=== PATIENT | female | born 1955 | race Caucasian/White ===

== ENCOUNTER 2021-09-15 09:46 | Outpatient (CLI) | payer MEDICARE, SELFPAY ==
--- NOTE | ~2021-09-15 | CT_ITS ---
EXAMINATION: CT LE LT wo con DATE: 09/15/2021 10:09 INDICATION: Unilateral primary osteoarthritis, left knee. TECHNIQUE: Computed tomography (CT) of the left lower limb was performed without intravenous contrast . Automated exposure control and iterative reconstruction technique were employed. The dose-length pr oduct was 1700.53 mGy-cm. COMPARISON: Left knee radiographs 07/21/2021 FINDINGS: Bone alignment is normal. No fracture. There is mild left hip osteoarthritis. The knee demo nstrates severe osteoarthritis of the medial compartment and moderate osteoarthritis of the lateral a nd patellofemoral compartments. There is a moderate-sized knee joint effusion with loose bodies. Ther e is a large Doan's cyst with loose bodies. IMPRESSION: 1. Severe left knee osteoarthritis. 2. Moderate-sized left knee joint effusion with loose bodies. 3. Large left-sided Doan's cyst with loose bodies. 4. Mild left hip osteoarthritis. Reviewed, dictated and finalized at location A. AND SHOE INSPECTOR
== END 2021-09-15 09:47 | disposition home or self-care (01) ==
PROVIDERS: PCP Internal Medicine Infectious Disease; Visit Provider Orthopaedic Surgery
DX: M17.12 Unilateral primary osteoarthritis, left knee (principal)
CPT/HCPCS: 73700

== ENCOUNTER 2021-09-27 11:55 | Outpatient (CLI) | payer MEDICARE, SELFPAY ==
--- NOTE | 2021-09-27 | ECG_ITS ---
Measurements Intervals [place] Rate: 62 P: 15 [place]: 165 QRS: 8 QRSD: 87 T: 0 QT: 397 QTc: 405 Interpretive Statements SINUS RHYTHM CONSIDER INFERIOR INFARCT, AGE INDETERMINATE ABNORMAL ECG Electronically Signed On 09-27-2021 14:44:11 OUTPATIENT PHARMACY MANAGER by Terence Sanders D.O.
[2021-09-27 12:36] LABS: Urine Cotinine NEGATIVE
[2021-09-27 12:39] LABS: Albumin Level 4.3 g/dL (3.5-5.1); Estimated Glomerular Filt Rate > 60; Glucose 90 mg/dL (65-110)
[2021-09-27 12:40] LABS: Hemoglobin A1C 5.3 % (<5.7)
[2021-09-27 12:48] LABS: Hematocrit 41.8 % (37.0-47.0); Hemoglobin 13.7 g/dL (12.0-15.0)
== END 2021-09-27 11:56 | disposition home or self-care (01) ==
PROVIDERS: PCP Internal Medicine Infectious Disease; Visit Provider Orthopaedic Surgery
DX: M17.12 Unilateral primary osteoarthritis, left knee (principal); Z01.818 Encounter for other preprocedural examination
CPT/HCPCS: 80307; 82040; 82565; 82947; 83036; 85014; 85018; 93005

== ENCOUNTER 2022-01-19 11:44 | Outpatient (CLI) | payer MEDICARE, SELFPAY ==
[2022-01-19 13:31] LABS: Basophils Absolute Auto 0.1 K/mm3 (0.0-0.1); Basophils Percent Auto 0.8 % (0.2-1.2); Eosinophils Absolute Auto 0.1 K/mm3 (0-0.3); Eosinophils Percent Auto 0.9 % (0-4.4); Hematocrit 40.4 % (37.0-47.0); Hemoglobin 13.6 g/dL (12.0-15.0); Immature Granulocyte Absolute 0.03 K/mm3 (0.00-0.031); Immature Granulocyte Percent A 0.4 % (0-0.5); Lymphocytes Absolute Auto 0.92 K/mm3 (0.9-3.2); Lymphocytes Percent Auto 11.9 % (18.3-44.2); Mean Corpuscular HGB Conc 33.7 g/dl (32-36); Mean Corpuscular Hemoglobin 30.8 pg (26-34); Mean Corpuscular Volume 91.6 fl (80-100); Mean Platelet Volume 11.5 fl (7.4-10.4); Monocytes Absolute Auto 0.2 K/mm3 (0.1-0.6); Neutrophils Absolute Auto 6.4 K/mm3 (1.3-6.7); Platelet Count Result 244 k/mm3 (150-375); Red Blood Count 4.41 M/mm3 (4.2-5.4); Red Cell Distribution Width 12.5 % (11.5-14.5); White Blood Count 7.7 K/mm3 (4.5-10.0)
[2022-01-19 13:43] LABS: Albumin Level 4.4 g/dL (3.5-5.1); Estimated Glomerular Filt Rate > 60; Glucose 119 mg/dL (65-110)
[2022-01-19 13:54] LABS: Urine Cotinine NEGATIVE
[2022-01-19 14:01] LABS: Hemoglobin A1C 5.5 % (<5.7)
== END 2022-01-19 11:45 | disposition home or self-care (01) ==
LOC: ANHSURGERY 11:51
PROVIDERS: PCP Internal Medicine Infectious Disease; Visit Provider Orthopaedic Surgery
DX: Z01.818 Encounter for other preprocedural examination (principal); M17.12 Unilateral primary osteoarthritis, left knee
CPT/HCPCS: 80307; 82040; 82565; 82947; 83036; 85025; 87081

== ENCOUNTER 2022-02-08 00:02 | Day surgery (SDC) | payer MEDICARE, SELFPAY ==
[2022-01-19 12:27] VITALS: BP 169/77; PULSE 71; RESP 16; TEMP 36.7; O2SAT 100; BMI 31.1
--- NOTE | 2022-01-19 12:42 | PC.NURSE ---
Report to the Outpatient Waiting Room, entrance under the green pavilion located off [facility], at time __8:30AM on date __02/08/22 . OR Time: ___10:30AM . - You and your visitor will be asked a series of questions to screen for COVID 19 for your protection. - A mask is required within the hospital. Preoperative COVID Testing Requirements: No COVID Test needed if: (proof is required; if not received patient will have Rapid Test prior to entry) - Patient has received COVID Vaccine at least 14 days prior to procedure date or - Patient has positive COVID test result within last 90 days of surgery date. COVID Test needed if above criteria is not met If not COVID vaccinated a COVID test must be conducted within 72 hours of surgery and patient is asked to isolate self from time of testing until procedure. You will go to the [facility] for your COVID testing. [facility] is located at the corner of [address] [facility]. You will only be called if COVID results are positive and your surgeon may reschedule your elective surgery date. Patients may have clear liquids (water, carbonated beverages, clear teas, apple juice) until 3 hours prior to surgery with a maximum of 20 ounces. - No food from midnight until time of surgery - Infants may have breast milk until 4 hours before surgery, formula 6 hours prior to surgery. - Children will be allowed to drink immediately following surgery. If applicable, please bring a bottle or sippy cup to assist with drinking. Juice, water, soda, and popsicles are readily available. For infants on formula, please bring formula the day of surgery. Pacifiers are allowed. Take the following medications with a SIP of water the morning of surgery: __METOPROLOL Medications to discontinue per physician DICLOFENAC AND ALL VITAMINS/SUPPLEMENTS 7 DAYS PRE-OP Date to take last dose 02/01/22 Please no make-up, nail spanish, hairspray, perfume, deodorant, or body powder the day of surgery. No jewelry (including any body piercings) or valuables the day of surgery, leave them at home. Please take a shower or bath the night before, or the morning of, surgery with an antibacterial soap. Wear comfortable, loose fitting clothing. Children are encouraged to wear pajamas. - Jewelry must be removed prior to entering the operating room. Rings and piercings that are not removed may be cut off. - The hospital will not accept responsibility for valuables. - Please leave all valuables, including medications, at home the day of surgery. If you are going home after surgery, a licensed trackless trolley driver must drive you home. - NO public transportation without another adult. - We recommend that an adult stay with you for 24 hours following discharge. - We also recommend that you do not drive, make important decision, drink alcoholic beverages, or take any drugs that were not prescribed by your health care provider for at least 24 hours after your discharge time. For Pediatric surgeries, we recommend two adults accompany the child home (only one inside the building at this time). One visitor will be allowed to accompany the patient into the hospital. Patients visitor will be instructed to remain with patient at all times or leave the building. We will allow the visitor to come back to the postoperative area when patient is ready. Follow any additional instructions given to you from your surgeon. Telephone instructions given to ___PATIENT and asked if any additional questions and then verbalized understanding. Patient advised to call surgeon office or pre surgery nurse liaison [phone] if any additional questions.
--- NOTE | 2022-02-07 10:49 | WPDANESEPPF ---
Anes - Initial Pre Proc Eval Procedure: Operation Date: 02/08/22 10:30 Proposed Procedures p Left Custom Total Knee Arthroplasty - Rome Josue MD Date/Time: 02/07/22 10:49 Surgeon: Rome Josue MD Pre Op Diagnosis: primary OA left knee Patient Data Age: 66 Gender: F Height: 1.6 m Weight: 79.6 kg Last Vital Signs Temp 36.7 C 01/19/22 12:27 Pulse 71 01/19/22 12:27 Resp 16 01/19/22 12:27 BP 169/77 H 01/19/22 12:27 Pulse Ox 100 01/19/22 12:27 Allergies Allergy/AdvReac Type Severity Reaction Status Date / Time Sulfa (Sulfonamide Allergy Unknown Rash Verified 02/08/22 08:35 Antibiotics) Home Medications Medication Instructions Recorded Confirmed Type lisinopril 20 mg tablet 20 mg PO QAM 04/22/20 02/08/22 History vitamin B12 500 mcg-folic acid 400 1 tablet PO DAILY 04/22/20 02/08/22 History mcg tablet cholecalciferol (vitamin D3) 50 mcg PO DAILY 01/19/22 02/08/22 History diclofenac sodium 1 ea TOPICAL DAILY 01/19/22 02/08/22 History diclofenac sodium 75 mg PO QAM 01/19/22 02/08/22 History metoprolol succinate 100 mg PO QAM 01/19/22 02/08/22 History omeprazole 20 mg PO QAM 01/19/22 02/08/22 History ECG: Date of Service: 09/27/21 Procedure(s): CA 12 lead EKG Accession Number(s): [id number] cc: ~ Measurements Intervals [place] Rate: 62 P: 15 RI: 165 QRS: 8 QRSD: 87 T: 0 QT: 397 QTc: 405 Interpretive Statements SINUS RHYTHM CONSIDER INFERIOR INFARCT, AGE INDETERMINATE ABNORMAL ECG Electronically Signed On 09-27-2021 14:44:11 SERVICER COIN MACHINES by Terence Sanders D.O. Patient hx anesthesia problems: none Family hx anesthesia problems: none Results Review: All pre-operative results and documents have been reviewed as part of the pre-operative evaluation. [facility] Past Medical History Medical History (Updated 02/07/22 @ 10:51 by Jose Monique MD) Bilateral primary osteoarthritis of knee Chronic GERD HTN (hypertension) Obesity Surgical History Surgical History H/O excision of ganglion cyst (~01/25/19) Lt History of meniscectomy of left knee (~02/16/16) History of shoulder surgery (~2009) Rotator Cuff Repair - Rt Family History Family History Unknown No problems noted. Social History Social History Smoking status: Never smoker Alcohol intake: current Drinks per week: 7 Substance use: never Living arrangements: with family Additional living arrangements comments: [facility] Spiritual care concerns: No Anes - Eval Final PreProcedure Day of Procedure 02/07/22 10:49 Patient weight: obese Heart: regular rate and rhythm Lungs: clear to auscultation and normal air movement Airway: Mallampati scale class II Neurological: alert and oriented Last oral intake: >/= 8 hours ASA classification: III Emergent: no Anesthetic plan: proceed Anesthesia type and monitoring: general LMA Results Review: All pre-operative results and documents have been reviewed as part of the pre-operative evaluation. Informed Consent: The patient's anesthetic plan and its attendant risks and benefits were discussed with the patient/family/POA. Questions were solicited and answers provided to the satisfaction of the patient/family/POA.
--- NOTE | 2022-02-07 10:51 | WPDANESPNB ---
Anes - Peripheral Nerve Block Date/Time: 02/07/22 10:51 I have discussed with the patient/family/POA the placement of a peripheral nerve block for post-operative pain management, including associated risks, benefits, complications, and side effects. Alternative methods of post-operative analgesia were detailed. Questions were solicited and answers provided to the satisfaction of the patient/family/POA. Time-Out: A pre-procedural Time-Out was completed immediately before starting the procedure and confirmed: Patient Identification, Site, Procedure, Patient Position and the Availability of Requisite Equipment. Clinical Indications: Acute post-operative pain management requested by the operative surgeon. Nerve Block Insertion Note Anes-nerve block: adductor canal left Patient position: supine Skin prep: chlorhexidine Needle: 22 gauge, stimulating, insulated echogenic needle. Needle length: 80 mm Technique: ultrasound Technique comment: in plane Injectate: bupivacaine 0.25% with epi 5 mcg/ml (30cc) Observations: tolerated well Complications: none Procedure start time:: 1015 Procedure end time:: 1020
[2022-02-08] VITALS (14 sets, daily range): BP systolic 134–163; BP diastolic 64–97; PULSE 69–90; RESP 9–20; TEMP 35.6–37.2; O2SAT 91–100
--- NOTE | ~2022-02-08 | XR_ITS ---
EXAMINATION: XR knee LT 2V EXAM DATE: 02/08/2022 13:52 INDICATION: Total left knee arthroplasty. TECHNIQUE: Portable frontal, crosstable lateral projections left knee obtained immediately following arthroplasty performed by orthopedic surgeon Rome Josue MD. FINDINGS: Patient is status post total knee arthroplasty. The orthopedic hardware is in expected po sition. There is there is subcutaneous gas, gas within the knee joint space. Overlying soft tissue swelling. Correlate with procedure note. IMPRESSION: Status post total left knee arthroplasty. Reviewed, dictated and finalized at location A.
--- NOTE | 2022-02-08 07:09 | WPDHPUPDATE1 ---
History and Physical Update Update Date/Time: 02/08/22 07:09 History and Physical has been reviewed, including an updated exam of the patient. There are NO changes in the patient's condition. Risks, benefits, and alternatives have been discussed and questions answered. Patient agrees to proceed with procedure.
[2022-02-08] MEDS: LACTATED RINGERS 1,000 ML 30 ML IV CONT ×2 (08:55→13:40)
[2022-02-08] MEDS: TRANEXAMIC ACID 1,000MG/ISO100 1,000 MG/100 ML BAG 200 MG IVPB (09:00)
[2022-02-08] MEDS: ACETAMINOPHEN 500 MG TABLET 1000 MG PO (09:01)
[2022-02-08] MEDS: ceFAZolin 2 GM/D5W 50 ML 2 GM/50 ML BAG IVPB ×2 (10:49→17:58)
[2022-02-08] MEDS: fentaNYL CITRATE INJ (*CRX) 100 MCG/2 ML VIAL 25 MCG IV PUSH ×2 (13:49→14:05)
[2022-02-08] MEDS: ONDANSETRON INJ 4 MG/2 ML VIAL IV PUSH (14:23)
--- NOTE | 2022-02-08 15:28 | ADMGEN ---
This patient, Pauline Diallo, was admitted to 2 Medical Room 240-01. Patient/family oriented to hospital policies and general routines including ID bracelet, bed and alarms, visiting hours, pain management, procedures, bathroom and other care routines, personal items, smoking policy, room service/diet, and visiting hours. Information on how to activate the Rapid Response Team has been discussed. Patient/Family are encouraged to report perceived risks to care and to ask questions if they do not understand what they are told or what they should do.
--- NOTE | 2022-02-08 16:13 | W.PM.PROC2 ---
Procedure Note - Detailed Date of Procedure 02/08/22 Pre-op Diagnosis primary OA left knee Post-op Diagnosis Same Procedure Performed Total knee arthroplasty, left. Surgeon Rome Josue MD Senior Professional Services Consultant Wendy Cotton PA-C Anesthesia General and Regional (Subsartorial block.) Description of Procedure Physician transportation assistant, Wendy Cotton PA-C, required for surgery; including patient positioning, draping, tissue retraction, maintaining instrument position, cement removal, wound closure, and dressing placement. Preoperative antibiotics were given. The limb was prepped and draped in the usual sterile fashion with a well-padded tourniquet high on the thigh. The limb was exsanguinated and the tourniquet inflated to 300 mmHg. A longitudinal incision was created just medial to the patella. A trivector approach to the knee was performed. Arthrotomy was taken down through the joint capsule. No significant releases were initially taken. The femur was exposed and the F1 jig was applied. The coring tool was used to remove the cartilage for the F2 jig to sit flush with the bone. The jig was pinned and the distal cut carefully taken. Caliper measurements confirmed appropriate bony resections according to the preoperative templated plan. The F4 cutting jig for the femur was applied, at the standard rotation. The AP and anterior chamfer cuts were taken. The F5 jig was applied and the posterior chamfer cuts were taken. The tibia was prepared using the T1 jig, after removing cartilage for the jig contact points. Proper alignment was checked with the alignment josef. The tibia was cut using the T1u guide. Gap balancing was performed. Gap measurements were taken and the knee was trialed. Excellent alignment and soft tissue balancing was confirmed. The posterior cruciate ligament was recessed along the proximal tibia. The patella was cut for resurfacing. Three lug holes were drilled. Meniscal remnants were removed. The trial components were assembled. Excellent range of motion and proper soft tissue balancing were confirmed throughout the full range of motion. Patellar tracking was excellent. The knee was copiously irrigated periodically throughout the procedure. The real implants were cemented into position. Excess cement was carefully removed. The wound was closed in layers with interrupted #1 Vicryl suture, 2-0 strata fix suture, 0 strata fix suture, 2-0 strata fix suture. Steri-Strips placed on the skin with the knee flexed. Sterile bulky dressing applied. The patient was brought to the recovery room in stable condition. There were no complications. Implants Conformis Custom total knee arthroplasty. Cemented. [Cruciate retaining.] [6A] insert. [32] mm round patella. Estimated Blood Loss -100.0 Drains No Complications No immediate complications Condition Stable Disposition PACU
[2022-02-08] MEDS: ASPIRIN 81 MG ENTERIC TABLET PO (17:32)
[2022-02-09] MEDS: ceFAZolin 2 GM/D5W 50 ML 2 GM/50 ML BAG IVPB ×2 (01:39→09:23)
[2022-02-09 04:58] VITALS: BP 143/75; PULSE 79; RESP 18; TEMP 36.9; O2SAT 99
[2022-02-09] MEDS: PANTOPRAZOLE 40 MG TABLET PO (07:14)
[2022-02-09] MEDS: SENNA/DOCUSATE SODIUM TABLET 2 TAB PO (07:44)
[2022-02-09] MEDS: DICLOFENAC SOD 75 MG TABLET.EC PO (07:44)
[2022-02-09] MEDS: lisinopriL 20 MG TABLET PO (07:44)
[2022-02-09] MEDS: ASPIRIN 81 MG ENTERIC TABLET PO (07:44)
[2022-02-09 07:45] VITALS: PULSE 80
[2022-02-09] MEDS: METOPROLOL SUCCINATE EXT REL 100 MG TABCR PO (07:45)
[2022-02-09 08:55] VITALS: BP 133/49; PULSE 67; RESP 15; TEMP 36.8; O2SAT 99
--- NOTE | 2022-02-09 09:00 | PM.DS ---
DS: Admitting Diagnosis Discharge Date 02/09/22 Admitting Diagnosis OA knee Left DS: Discharge Diagnosis Discharge Diagnosis (1) Orthopedic aftercare for joint replacement: Code(s): Z47.1 - Aftercare following joint replacement surgery Status: Acute (2) Status post total left knee replacement: Code(s): Z96.652 - Presence of left artificial knee joint Status: Acute Assessment and Plan: Postop day 1: Left total knee arthroplasty. Patient tolerated procedure well. No complications. Pain manageable with pain medication. No numbness or tingling. We had a lengthy discussion regarding postoperative wound care, limitations, expectations, and exercises. Patient shows good understanding. He has had initial physical therapy and is tolerating it well. DVT prophylaxis: 81 mg baby aspirin b.i.d. for 14 days. Pain medication: Percocet. Diclofenac. Prednisone. Patient has followup appointment with Dr. Josue in 3 weeks. DS: Summary Hospital Course Reason for hospitalization: Total knee arthroplasty Hospital Course: Patient tolerated procedure well. Has had initial PT/OT. Status at Discharge Functional status at discharge: uses cane/walker Overall status at discharge: patient is progressing back to baseline Time Spent with Patient Time attestation: Total time spent providing and/or coordinating discharge services: Exam Narrative: Overweight 66 y/o female. Resting comfortably in bed. Wearing compression socks bilaterally. Dressing intact with no drainage. Moderate swelling. No ecchymosis. No erythema. No hematoma. Range of motion limited due to pain. 0-85. Calf nontender. Neurologic status intact. No varicosities. Distal pulses palpable. DS: Data Data Completed and Pending Labs on day of discharge: Labs from last 24 hours 02/08/22 08:47 Blood Type A Positive Antibody Screen Negative Discharge Plan Discharge Patient Disposition: Home, Self-Care Discharge Instructions: See green instruction sheet Patient Instructions: Pain Management (DC), Joint Replacement Surgery (DC), Knee Replacement (DC) Stand Alone Forms: General Discharge Instructions Follow-up/Referrals: Wendy Gillis PA [Physician Screw Machine Adjuster Automatic] - Discharge Medications: New aspirin 81 mg tablet,delayed release (DR/EC) 81 mg PO BID 14 Days Qty: 28 RF: 0 oxycodone-acetaminophen 5-325 mg tablet 1 - 2 tablet PO Q4-6H MDD 6 PRN (Reason: pain) Qty: 30 RF: 0 prednisone 5 mg tablet 5 mg PO DAILY 21 Days Qty: 21 RF: 0 Continued lisinopril 20 mg tablet 20 mg PO QAM RF: 0 vitamin G90-iocsb acid 500-400 mcg tablet 1 tablet PO DAILY RF: 0 metoprolol succinate 100 mg tablet extended release 24 hr 100 mg PO QAM RF: 0 cholecalciferol (vitamin D3) 50 mcg (2,000 unit) Capsule 50 mcg PO DAILY RF: 0 diclofenac sodium 75 mg tablet,delayed release (DR/EC) 75 mg PO QAM RF: 0 diclofenac sodium 1 % gel 1 ea TOPICAL DAILY RF: 0 omeprazole 20 mg capsule,delayed release(DR/EC) 20 mg PO QAM RF: 0
--- NOTE | 2022-02-09 09:14 | WPDANESPN ---
Anes - Prog Note Post-Op Date/Time: 02/09/22 09:14 Cardiovascular status: normal Respiratory status: normal Airway patency: baseline Mental status: baseline Post-Op hydration status: normal Vital Signs: Last Vital Signs Temp 98.5 F 02/09/22 04:58 Pulse 80 02/09/22 07:45 Resp 18 02/09/22 04:58 BP 143/75 H 02/09/22 04:58 Pulse Ox 99 02/09/22 04:58 Pain Score (VAS): 0 I/O: Intake & Output 02/08/22 02/09/22 02/09/22 23:59 07:59 15:59 Intake Total 672 540 240 Balance 672 540 240 02/08/22 08:47 Blood Type A Positive Antibody Screen Negative Post-procedural complaints: nausea Patient Feedback: Patient satisfied with anesthetic care.
[2022-02-09] MEDS: oxyCODONE HCL (*CRX) 5 MG TAB IR PO (09:23)
[2022-02-09] MEDS: ONDANSETRON INJ 4 MG/2 ML VIAL IV PUSH ×2 (09:25→12:53)
--- NOTE | 2022-02-09 11:00 | PCCCNOTE ---
On 02/09/22, the student, [Ping Lee], provided care and [facility] this [facility]. I have reviewed the student's documentation and agree with the findings.
== END 2022-02-09 13:10 | disposition home or self-care (01) ==
LOC: ANHSURGERY 14:44 → ANH2MED 15:14
PROVIDERS: PCP Internal Medicine Infectious Disease; Visit Provider Orthopaedic Surgery
PROC: (CPT 27447; principal; 2022-02-08 10:30)
DX: M17.12 Unilateral primary osteoarthritis, left knee (principal); G89.18 Other acute postprocedural pain; I10 Essential (primary) hypertension; K21.9 Gastro-esophageal reflux disease without esophagitis; E66.9 Obesity, unspecified; Z68.31 Body mass index [BMI] 31.0-31.9, adult
CPT/HCPCS: 27447; 64447; 36415; 73560; 80307; 82040; 82565; 82947; 83036; 85025; 86850; 86900; 86901; 87081; 97110; 97161; 97165; A9270; C1713; C1776; J0131; J0171; J0690; J1100; J1170; J1885; J2250; J2270; J2405; J2704; J2795; J3010; J7030; J7120

== ENCOUNTER 2022-06-24 13:28 | Outpatient (CLI) | payer MEDICARE, SELFPAY ==
--- NOTE | ~2022-06-24 | CT_ITS ---
EXAMINATION: CT LE RT wo con DATE: 06/24/2022 14:00 INDICATION: Right knee primary osteoarthritis. Preoperative planning. TECHNIQUE: Computed tomography (CT) of the right lower limb was performed without intravenous contras t. Automated exposure control and iterative reconstruction technique were employed. The dose-length p roduct was 1535.53 mGy-cm. COMPARISON: Right knee radiographs 05/11/2022 FINDINGS: Bone alignment is normal. No fracture. There is mild right hip osteoarthritis. The right kn ee demonstrates severe osteoarthritis of the medial and patellofemoral compartments and mild osteoart hritis of lateral compartment. There is a small knee joint effusion with loose bodies. There are loos e bodies in the popliteus tendon sheath. The talar dome is normal. IMPRESSION: 1. Severe right knee osteoarthritis. 2. Small right knee joint effusion with loose bodies. 3. Mild right hip osteoarthritis. Reviewed, dictated and finalized at location A.
== END 2022-06-24 13:29 | disposition home or self-care (01) ==
PROVIDERS: PCP Internal Medicine Infectious Disease; Visit Provider Orthopaedic Surgery
DX: Z01.818 Encounter for other preprocedural examination (principal); M17.11 Unilateral primary osteoarthritis, right knee; M25.461 Effusion, right knee; M23.41 Loose body in knee, right knee; M16.11 Unilateral primary osteoarthritis, right hip
CPT/HCPCS: 73700

== ENCOUNTER 2022-08-03 10:46 | Outpatient (CLI) | payer MEDICARE, SELFPAY ==
[2022-08-03 11:09] LABS: Hematocrit 38.8 % (37.0-47.0); Hemoglobin 12.9 g/dL (12.0-15.0)
[2022-08-03 11:20] LABS: Albumin Level 4.3 g/dL (3.5-5.1); Estimated Glomerular Filt Rate > 60
== END 2022-08-03 10:47 | disposition home or self-care (01) ==
PROVIDERS: PCP Internal Medicine Infectious Disease; Visit Provider Orthopaedic Surgery
DX: Z01.812 Encounter for preprocedural laboratory examination (principal); M17.11 Unilateral primary osteoarthritis, right knee; K21.9 Gastro-esophageal reflux disease without esophagitis; I10 Essential (primary) hypertension
CPT/HCPCS: 36415; 82040; 82565; 85014; 85018

== ENCOUNTER 2022-09-07 11:10 | Outpatient (CLI) | payer MEDICARE, SELFPAY ==
--- NOTE | 2022-09-07 11:55 | ECG_ITS ---
Measurements Intervals [place] Rate: 65 P: 26 OR: 159 QRS: 5 QRSD: 89 T: -3 QT: 381 QTc: 397 Interpretive Statements SINUS RHYTHM CONSIDER INFERIOR INFARCT, AGE INDETERMINATE BASELINE ARTIFACT- I, II, AVR, AVL ABNORMAL ECG COMPARED TO ECG 09/27/2021 12:52:49 NO SIGNIFICANT CHANGES Electronically Signed On 09-07-2022 12:55:13 CDT by Terence Sanders D.O.
[2022-09-07 12:24] LABS: Basophils Absolute Auto 0.1 K/mm3 (0.0-0.1); Basophils Percent Auto 1.4 % (0.2-1.2); Eosinophils Absolute Auto 0.2 K/mm3 (0-0.3); Eosinophils Percent Auto 2.4 % (0-4.4); Hematocrit 40.8 % (37.0-47.0); Hemoglobin 13.4 g/dL (12.0-15.0); Immature Granulocyte Absolute 0.02 K/mm3 (0.00-0.031); Immature Granulocyte Percent A 0.3 % (0-0.5); Lymphocytes Absolute Auto 1.52 K/mm3 (0.9-3.2); Lymphocytes Percent Auto 24.2 % (18.3-44.2); Mean Corpuscular HGB Conc 32.8 g/dl (32-36); Mean Corpuscular Hemoglobin 29.9 pg (26-34); Mean Corpuscular Volume 91.1 fl (80-100); Mean Platelet Volume 10.9 fl (7.4-10.4); Monocytes Absolute Auto 0.6 K/mm3 (0.1-0.6); Monocytes Percent Auto 9.5 % (2.6-8.5); Neutrophils Absolute Auto 3.9 K/mm3 (1.3-6.7); Neutrophils Percent Auto 62.2 % (45.5-73.1); Platelet Count Result 300 k/mm3 (150-375); Red Blood Count 4.48 M/mm3 (4.2-5.4); Red Cell Distribution Width 12.4 % (11.5-14.5); White Blood Count 6.3 K/mm3 (4.5-10.0)
[2022-09-07 12:35] LABS: Glucose 79 mg/dL (65-110)
[2022-09-07 12:39] LABS: Urine Cotinine NEGATIVE
[2022-09-07 13:27] LABS: Hemoglobin A1C 5.8 % (<5.7)
== END 2022-09-07 11:11 | disposition home or self-care (01) ==
LOC: ANHSURGERY 11:13
PROVIDERS: PCP Internal Medicine Infectious Disease; Visit Provider Orthopaedic Surgery
DX: Z01.818 Encounter for other preprocedural examination (principal); M17.11 Unilateral primary osteoarthritis, right knee; R94.31 Abnormal electrocardiogram [ECG] [EKG]
CPT/HCPCS: 80307; 82947; 83036; 85025; 87081; 93005

== ENCOUNTER 2022-10-04 01:46 | Day surgery (SDC) | payer MEDICARE, SELFPAY ==
[2022-09-07 11:18] VITALS: BMI 31.8
--- NOTE | 2022-09-07 11:39 | PC.NURSE ---
Report to the Outpatient Waiting Room, entrance under the green pavilion located off [facility], at time __0830 on date _10/04/22 . Planned Procedure Time: _1030 . Time changes happen often and if your time is changed the preop area will call you the afternoon before. - You and your visitor will be asked to self-screen and do not enter if you have any COVID symptoms. - We encourage only one visitor and NO visitors under age 16 are allowed at this time. Your visitor will receive communication by the phone number that is given day of service. - The patient visitor is requested to social distance or may leave the building when not with patient due to restrictions. - A mask is required within the hospital. Patients may have clear liquids (water, carbonated beverages, clear teas, apple juice) until 3 hours prior to surgery with a maximum of 20 ounces. - No food from midnight until time of surgery - Infants may have breast milk until 4 hours before surgery, formula 6 hours prior to surgery. - Children will be allowed to drink immediately following surgery. If applicable, please bring a bottle or sippy cup to assist with drinking. Juice, water, soda, and popsicles are readily available. For infants on formula, please bring formula the day of surgery. Pacifiers are allowed. Take the following medications with a SIP of water the morning of surgery: ____METOPROLOL Medications to discontinue per physician DICLOFENAC 7 DAYS PRE OP PER DR GARCIA_ORDERS Date to take last dose___09/26/22 Please no make-up, nail sami, hairspray, perfume, deodorant, or body powder the day of surgery. No jewelry (including any body piercings) or valuables the day of surgery, leave them at home. Please take a shower or bath the night before, or the morning of, surgery with an antibacterial soap. Wear comfortable, loose fitting clothing. Children are encouraged to wear pajamas. - Jewelry must be removed prior to entering the operating room. Rings and piercings that are not removed may be cut off. - The hospital will not accept responsibility for valuables. - Please leave all valuables, including medications, at home the day of surgery. If you are going home after surgery, a licensed company tanker truck driver must drive you home. - NO public transportation without another adult. - We recommend that an adult stay with you for 24 hours following discharge. - We also recommend that you do not drive, make important decision, drink alcoholic beverages, or take any drugs that were not prescribed by your health care provider for at least 24 hours after your discharge time. For Pediatric surgeries, we recommend two adults accompany the child home. Follow any additional instructions given to you from your surgeon. If you or anyone in your household have experienced Covid symptoms in the past week, please notify your surgeon or the nurse liaison at the phone number below for possible testing. VERBAL AND WRITTEN instructions given to __PATIENT and asked if any additional questions and then verbalized understanding. Patient advised to call surgeon office or pre surgery nurse liaison [phone] if any additional questions.
[2022-09-07 11:57] VITALS: BP 174/78; PULSE 65; RESP 18; TEMP 36.9; O2SAT 99
[2022-10-04] VITALS (17 sets, daily range): BP systolic 134–181; BP diastolic 57–80; PULSE 61–84; RESP 12–18; TEMP 36.1–36.8; O2SAT 60–100
--- NOTE | ~2022-10-04 | XR_ITS ---
XR knee RT 2V DATE: 10/04/2022 13:10 INDICATION: Postoperative examination TECHNIQUE: Postoperative AP and lateral views COMPARISON: None FINDINGS: There is expected subcutaneous and intra-articular gas in the postoperative state following right total hip arthroplasty with patellar resurfacing. No fracture or dislocation, periosteal reaction or bone destruction, unusual radiopaque foreign body. IMPRESSION: Status post right total knee arthroplasty with patellar resurfacing Reviewed, dictated and finalized at location B. ING AGENT
--- NOTE | 2022-10-04 08:45 | WPDANESEPPF ---
Anes - Initial Pre Proc Eval Procedure: Operation Date: 10/04/22 10:30 Proposed Procedures p Right Custom Total Knee Arthroplasty - Rome Josue MD Date/Time: 10/04/22 08:45 Surgeon: Rome Josue MD Pre Op Diagnosis: primary OA right knee Patient Data Age: 67 Gender: F Height: 1.6 m Weight: 81.5 kg Last Vital Signs Temp 36.9 C 09/07/22 11:57 Pulse 65 09/07/22 11:57 Resp 18 09/07/22 11:57 BP 174/78 H 09/07/22 11:57 Pulse Ox 99 09/07/22 11:57 O2 Del Method Room Air 09/07/22 11:57 Allergies Allergy/AdvReac Type Severity Reaction Status Date / Time Sulfa (Sulfonamide Allergy Unknown Rash Verified 09/07/22 11:19 Antibiotics) Home Medications Medication Instructions Recorded Confirmed Type lisinopril 20 mg tablet 20 mg PO QAM 04/22/20 09/07/22 History diclofenac sodium 75 mg 75 mg PO QAM 01/19/22 09/07/22 History tablet,delayed release metoprolol succinate 100 mg 100 mg PO QAM 01/19/22 09/07/22 History tablet,extended release 24 hr omeprazole 20 mg capsule,delayed 20 mg PO QAM 01/19/22 09/07/22 History release acetaminophen 500 mg tablet 1,000 mg PO Q6H PRN Pain 09/07/22 09/07/22 History Patient hx anesthesia problems: none Family hx anesthesia problems: none Results Review: All pre-operative results and documents have been reviewed as part of the pre-operative evaluation. [facility] Past Medical History Medical History Bilateral primary osteoarthritis of knee Chronic GERD HTN (hypertension) Obesity Surgical History Surgical History H/O excision of ganglion cyst (~01/25/19) Lt History of meniscectomy of left knee (~02/16/16) History of shoulder surgery (~2009) Rotator Cuff Repair - Rt Family History Family History Unknown No problems noted. Social History Social History Smoking status: Never smoker Additional smoking assessment comments: DENIES ANY FORM OF TOBACCO USE Alcohol intake: current Drinks per week: 5 Substance use: never Substance use type: does not use Lack of Transportation: No Lack of Food: Never True Current Housing: I Have Housing Concerned About Future Housing: No Difficulty Paying Gas/Electric Bills: No Difficulty Paying for Meds: No Currently Unemployed: No Education: High School Diploma/GED Difficulty w/ Childcare or Family Care: No Living arrangements: with family Additional living arrangements comments: [facility] Spiritual care concerns: No Anes - Eval Final PreProcedure Day of Procedure 10/04/22 08:45 Patient weight: obese Heart: regular rate and rhythm Lungs: clear to auscultation Airway: Mallampati scale class II Neurological: alert and oriented Last oral intake: >/= 8 hours ASA classification: III Emergent: no Anesthetic plan: proceed Anesthesia type and monitoring: general LMA and standard monitoring Results Review: All pre-operative results and documents have been reviewed as part of the pre-operative evaluation. Informed Consent: The patient's anesthetic plan and its attendant risks and benefits were discussed with the patient/family/POA. Questions were solicited and answers provided to the satisfaction of the patient/family/POA.
[2022-10-04] MEDS: ACETAMINOPHEN 500 MG TABLET 1000 MG PO (09:10)
[2022-10-04] MEDS: TRANEXAMIC ACID 1,000MG/ISO100 1,000 MG/100 ML BAG 200 MG IVPB (09:40)
[2022-10-04] MEDS: LACTATED RINGERS 1,000 ML 30 ML IV CONT ×2 (09:40→13:09)
--- NOTE | 2022-10-04 10:20 | WPDANESPNB ---
Anes - Peripheral Nerve Block Date/Time: 10/04/22 10:20 I have discussed with the patient/family/POA the placement of a peripheral nerve block for post-operative pain management, including associated risks, benefits, complications, and side effects. Alternative methods of post-operative analgesia were detailed. Questions were solicited and answers provided to the satisfaction of the patient/family/POA. Time-Out: A pre-procedural Time-Out was completed immediately before starting the procedure and confirmed: Patient Identification, Site, Procedure, Patient Position and the Availability of Requisite Equipment. Clinical Indications: Acute post-operative pain management requested by the operative surgeon. Nerve Block Insertion Note Anes-nerve block: adductor canal right Patient position: supine Skin prep: chlorhexidine Needle: 22 gauge, stimulating, insulated echogenic needle. Needle length: 80 mm Technique: ultrasound Technique comment: mid2mg [id number] Injectate: bupivacaine 0.5% with epi 5 mcg/ml (30ml no epi) and dexamethasone (mg) (4) Observations: tolerated well Complications: none Procedure start time:: 1010 Procedure end time:: 1017
--- NOTE | 2022-10-04 10:27 | WPDHPUPDATE1 ---
History and Physical Update Update Date/Time: 10/04/22 10:27 History and Physical has been reviewed, including an updated exam of the patient. There are NO changes in the patient's condition. Risks, benefits, and alternatives have been discussed and questions answered. Patient agrees to proceed with procedure.
[2022-10-04] MEDS: ceFAZolin 2 GM/D5W 50 ML 2 GM/50 ML BAG IVPB ×2 (10:32→17:59)
[2022-10-04] MEDS: GENTAMICIN BONE CEMENT REFOBACIN 1 EACH TOPICAL (12:05)
[2022-10-04] MEDS: fentaNYL CITRATE INJ (*CRX) 100 MCG/2 ML VIAL 25 MCG IV PUSH ×3 (13:23→14:11)
--- NOTE | 2022-10-04 15:10 | PC.NURSE ---
This patient, Pauline Diallo, was admitted to 3 Med Surg Room 300-01. Report received from MATEUSZ Snyder. Patient/family oriented to hospital policies and general routines including ID bracelet, bed and alarms, visiting hours, pain management, procedures, bathroom and other care routines, personal items, smoking policy, room service/diet, and visiting hours. Information on how to activate the Rapid Response Team has been discussed. Patient/Family are encouraged to report perceived risks to care and to ask questions if they do not understand what they are told or what they should do.
--- NOTE | 2022-10-04 15:22 | W.PM.PROC2 ---
Procedure Note - Detailed Date of Procedure 10/04/22 Pre-op Diagnosis primary OA right knee Post-op Diagnosis Same Procedure Performed Total knee arthroplasty, right knee. Surgeon Rome Josue MD Anesthesia General and Regional (Subsartorial block.) Findings Good bone quality. No additional releases. Custom TKA optimal fit. Description of Procedure Preoperative antibiotics were given. The limb was prepped and draped in the usual sterile fashion with a well-padded tourniquet high on the thigh. The limb was exsanguinated and the tourniquet inflated to 300 mmHg. A longitudinal incision was created just medial to the patella. A trivector approach to the knee was performed. Arthrotomy was taken down through the joint capsule. No significant releases were initially taken. The femur was exposed and the F1 jig was applied. The coring tool was used to remove the cartilage for the F2 jig to sit flush with the bone. The jig was pinned and the distal cut carefully taken. Caliper measurements confirmed appropriate bony resections according to the preoperative templated plan. The F4 cutting jig for the femur was applied, at the standard rotation. The AP and anterior chamfer cuts were taken. The F5 jig was applied and the posterior chamfer cuts were taken. The tibia was prepared using the T1 jig, after removing cartilage for the jig contact points. Proper alignment was checked with the alignment josef. The tibia was cut using the T1u guide. Gap balancing was performed. Gap measurements were taken and the knee was trialed. Excellent alignment and soft tissue balancing was confirmed. The posterior cruciate ligament was recessed along the proximal tibia. The patella was cut for resurfacing. Three lug holes were drilled. Meniscal remnants were removed. The trial components were assembled. Excellent range of motion and proper soft tissue balancing were confirmed throughout the full range of motion. Patellar tracking was excellent. The knee was copiously irrigated periodically throughout the procedure. The real implants were cemented into position. Excess cement was carefully removed. The wound was closed in layers with interrupted #1 Vicryl suture, 2-0 strata fix suture, 0 strata fix suture, 2-0 strata fix suture. Steri-Strips placed on the skin with the knee flexed. Sterile bulky dressing applied. The patient was brought to the recovery room in stable condition. There were no complications. Implants Conformis Custom total knee arthroplasty. Cemented. Cruciate retaining. 7B insert. 29 mm round patella. Estimated Blood Loss -200.0 Drains No Complications No immediate complications Condition Stable Disposition PACU [facility] Billing Surgery - Charge Forward: Surgery Billing
[2022-10-04] MEDS: SODIUM CHLORIDE 0.9% IV 1,000 ML 125 ML IV CONT (15:33)
[2022-10-04] MEDS: oxyCODONE HCL (*CRX) 5 MG TAB IR PO (16:04)
[2022-10-04] MEDS: ASPIRIN 81 MG ENTERIC TABLET PO (16:05)
[2022-10-04] MEDS: MELOXICAM 7.5 MG TABLET PO (16:05)
[2022-10-04] MEDS: SENNA/DOCUSATE SODIUM TABLET 2 TAB PO (16:06)
[2022-10-04] MEDS: ONDANSETRON INJ 4 MG/2 ML VIAL IV PUSH (18:09)
[2022-10-04] MEDS: FAMOTIDINE 20 MG TABLET PO (20:20)
[2022-10-05 00:40] VITALS: BP 129/60; PULSE 66; RESP 20; TEMP 36.3; O2SAT 100
[2022-10-05] MEDS: ceFAZolin 2 GM/D5W 50 ML 2 GM/50 ML BAG IVPB ×2 (01:10→10:04)
[2022-10-05 04:40] VITALS: BP 140/65; PULSE 64; RESP 18; TEMP 36.8; O2SAT 99
[2022-10-05 06:38] LABS: Basophils Percent Auto 0.2 % (0.2-1.2); Hematocrit 32.9 % (37.0-47.0); Hemoglobin 10.8 g/dL (12.0-15.0); Immature Granulocyte Absolute 0.07 K/mm3 (0.00-0.031); Immature Granulocyte Percent A 0.5 % (0-0.5); Lymphocytes Absolute Auto 0.98 K/mm3 (0.9-3.2); Lymphocytes Percent Auto 7.6 % (18.3-44.2); Mean Corpuscular HGB Conc 32.8 g/dl (32-36); Mean Corpuscular Hemoglobin 30.7 pg (26-34); Mean Corpuscular Volume 93.5 fl (80-100); Mean Platelet Volume 11.7 fl (7.4-10.4); Monocytes Absolute Auto 1.2 K/mm3 (0.1-0.6); Monocytes Percent Auto 9.2 % (2.6-8.5); Neutrophils Absolute Auto 10.7 K/mm3 (1.3-6.7); Neutrophils Percent Auto 82.5 % (45.5-73.1); Platelet Count Result 233 k/mm3 (150-375); Red Blood Count 3.52 M/mm3 (4.2-5.4); Red Cell Distribution Width 12.2 % (11.5-14.5)
[2022-10-05 06:39] LABS: Anion Gap 8 mmol/L (8-16); Blood Urea Nitrogen 11 mg/dL (7-17); Calcium 9.9 mg/dL (8.4-10.2); Carbon Dioxide 23 mmol/L (22-30); Chloride 106 mmol/L (98-107); Estimated CRCL calculation 76 ml/min; Estimated Glomerular Filt Rate > 60; Glucose 119 mg/dL (65-110); Potassium 4.6 mmol/L (3.4-5.0); Sodium 137 mmol/L (137-145)
[2022-10-05 08:09] VITALS: PULSE 64
[2022-10-05] MEDS: MELOXICAM 7.5 MG TABLET PO (08:09)
[2022-10-05] MEDS: METOPROLOL SUCCINATE EXT REL 100 MG TABCR PO (08:09)
[2022-10-05] MEDS: SENNA/DOCUSATE SODIUM TABLET 2 TAB PO (08:09)
[2022-10-05] MEDS: FAMOTIDINE 20 MG TABLET PO (08:09)
[2022-10-05] MEDS: PANTOPRAZOLE 40 MG TABLET PO (08:10)
[2022-10-05] MEDS: lisinopriL 20 MG TABLET PO (08:10)
[2022-10-05] MEDS: ASPIRIN 81 MG ENTERIC TABLET PO (08:10)
[2022-10-05 08:35] VITALS: BP 147/63; PULSE 74; RESP 16; TEMP 36.5; O2SAT 100
[2022-10-05 12:09] VITALS: BP 129/49; PULSE 71; RESP 16; TEMP 36.2; O2SAT 99
[2022-10-05] MEDS: ACETAMINOPHEN 500 MG TABLET 1000 MG PO (13:00)
--- NOTE | 2022-10-05 13:32 | PM.DS ---
DS: Admitting Diagnosis Discharge Date 10/05/22 Admitting Diagnosis Osteoarthritis right knee. DS: Discharge Diagnosis Discharge Diagnosis (1) Status post total knee replacement, right: Code(s): Z96.651 - Presence of right artificial knee joint Status: Acute DS: Summary Hospital Course Reason for hospitalization: Total knee arthroplasty. Hospital Course: Tolerated surgery well. Progressed appropriately with therapy. Status at Discharge Functional status at discharge: uses cane/walker Overall status at discharge: patient is progressing back to baseline Time Spent with Patient Time attestation: Total time spent providing and/or coordinating discharge services: Exam Const: General: no acute distress Resp: Effort & Inspection: normal respiratory effort Skin: Other: Wound healing well. Mepilex dressing intact. No hematoma or drainage. Neuro: Motor exam (neuro): 5/5 motor strength present throughout Sensory Exam: normal sensation Psych: Mental Status: mental status grossly normal Speech and movement: Normal speech and movement present Discharge Plan Discharge Patient Disposition: Home, Self-Care Discharge Instructions: See instruction sheet. Patient Instructions: Knee Replacement (DC) Stand Alone Forms: General Discharge Instructions Follow-up/Referrals: Rome Josue MD [Physician] - Discharge Medications: New oxycodone-acetaminophen 5-325 mg tablet 1 - 2 tablet PO Q4-6H MDD 8 tablets PRN (Reason: pain) Qty: 30 0RF prednisone 5 mg tablet 5 mg PO DAILY Qty: 10 0RF Continued lisinopril 20 mg tablet 20 mg PO QAM metoprolol succinate 100 mg tablet extended release 24 hr 100 mg PO QAM omeprazole 20 mg capsule,delayed release(DR/EC) 20 mg PO QAM acetaminophen 500 mg Tablet 1,000 mg PO Q6H PRN (Reason: Pain) Discontinued diclofenac sodium 75 mg tablet,delayed release (DR/EC) 75 mg PO QAM Quality VTE Prophylaxis VTE prophylaxis: mechanical ordered (TARSHA moulton and Randall)
== END 2022-10-05 13:15 | disposition home or self-care (01) ==
LOC: ANHSURGERY 08:15 → ANH3MEDSUR 14:58
PROVIDERS: PCP Internal Medicine Infectious Disease; Visit Provider Orthopaedic Surgery
PROC: (CPT 27447; principal; 2022-10-04 10:30)
DX: M17.11 Unilateral primary osteoarthritis, right knee (principal); G89.18 Other acute postprocedural pain; I10 Essential (primary) hypertension; K21.9 Gastro-esophageal reflux disease without esophagitis; E66.9 Obesity, unspecified; Z68.31 Body mass index [BMI] 31.0-31.9, adult
CPT/HCPCS: 27447; 64447; 36415; 73560; 80048; 80307; 82947; 83036; 85025; 86850; 86900; 86901; 87081; 93005; 97110; 97161; 97165; A9270; C1713; C1776; J0131; J0171; J0690; J1100; J1885; J2250; J2270; J2370; J2405; J2704; J2795; J3010; J7030; J7120

== ENCOUNTER 2023-11-01 07:18 | Outpatient (CLI) | payer MEDICARE, SELFPAY ==
--- NOTE | ~2023-11-01 | NM_ITS ---
EXAMINATION: NM parathyroid imaging w spect DATE: 11/01/2023 11:17 INDICATION: Parathyroid adenoma. TECHNIQUE: 20.7 mCi Tc99m sestamibi was administered intravenously. Anterior images of the neck were obtained immediately and at 2 hours. SPECT images of the neck were obtained. COMPARISON: None. FINDINGS: There is no focus of persistent activity in the area of the thyroid or mediastinum to sugge st parathyroid adenoma. IMPRESSION: 1. No evidence of a parathyroid adenoma. Reviewed, dictated and finalized at location E. INSULATOR
== END 2023-11-01 07:19 | disposition home or self-care (01) ==
PROVIDERS: PCP Internal Medicine Infectious Disease; Visit Provider Otolaryngology
DX: D35.1 Benign neoplasm of parathyroid gland (principal)
CPT/HCPCS: 78071; A9500